=== PATIENT | female | born 1940 | race Caucasian/White ===

== ENCOUNTER 2018-04-11 14:11 | Observation (INO) ==
--- NOTE | 2018-04-11 14:46 | ED ---
HPI General Chief Complaint: Altered Mental Status Stated Complaint: Altered Mental Status Time Seen by Provider: 04/11/18 14:26 History of Present Illness HPI narrative: Patient presents to the emergency department with altered mental status. Change of mental status has been present since approximately 8 or 9:00 this morning. She does have a prior history of CVA. She is visiting from [place] she has been in the area since March 29. Her friend states that she has been dizzy, unable to walk well, confused. She is not scheduled to return to [place] into April 21 yet she packed her suitcase this morning and said that she was going back home. Additionally, she believes that she is actually still in [place]. She is without fever, chills, chest pain, nausea, vomiting, headache, abdominal pain, dysuria, or increased urinary frequency. She states she is on a blood thinner but when asked which one she states she cannot remember the name of few she states "all of them." Related Data Home Medications Medication Instructions Recorded Confirmed Unable to Obtain Home Meds 04/11/18 04/11/18 Allergies Allergy/AdvReac Type Severity Reaction Status Date / Time No Known Allergies Allergy Verified 04/11/18 14:40 Review of Systems ROS: all other systems reviewed are negative [facility] Medical History Medical History CVA (cerebral vascular accident) (Acute) Hypercholesteremia (Acute) Social History Social History Substance History: No History of Abuse Second Hand Smoke Exposure: No Smoking Status: Never smoker How Often Do You Have a Drink Containing Alcohol: Never Recent Travel in [facility] within the Last 8 Weeks: Yes Recent Out of Country Travel within the Last 8 Weeks: No Exam Narrative Exam Narrative: GENERAL: No acute distress. SKIN: Focused skin assessment warm/dry. HEAD: Atraumatic. Normocephalic. EYES: Pupils equal and round. No scleral icterus. No injection or drainage. ENT: No nasal bleeding or discharge. Mucous membranes pink and moist. NECK: Trachea midline. No JVD. CARDIOVASCULAR: Regular rate and rhythm. No murmur appreciated. RESPIRATORY: No accessory muscle use. Clear to auscultation. Breath sounds equal bilaterally. GASTROINTESTINAL: Abdomen soft, non-tender, nondistended. Hepatic and splenic margins not palpable. MUSCULOSKELETAL: No obvious deformities. No clubbing. No cyanosis. No edema. NEUROLOGICAL: Awake and alert. No obvious cranial nerve deficits. Motor grossly within normal limits. Normal speech (dry mouth), stroke scale of 2 91 for LOC as she doesn't know the month and 1 for R leg), oriented to person and time but not to place, 5/5 strength bilat UE and LE PSYCHIATRIC: Appropriate mood and affect; insight and judgment normal. Course Initial Documented Vital Signs Temperature 98.9 F 04/11/18 14:15 Pulse Rate 88 04/11/18 14:15 Respiratory Rate 24 04/11/18 14:15 Blood Pressure 139/75 04/11/18 14:15 Pulse Oximetry 96 04/11/18 14:15 Last Documented Vital Signs Temperature 98.9 F 04/11/18 14:15 Pulse Rate 108 H 04/11/18 16:12 Respiratory Rate 18 04/11/18 16:12 Blood Pressure 144/97 H 04/11/18 16:12 Pulse Oximetry 98 04/11/18 16:12 Medical Decision Making MDM Narrative Medical decision making narrative: Patient presents to the emergency department altered mental status. Patient placed on front desk monitor, continuous pulse ox, IV access obtained. Fingerstick within normal limits. Labs, EKG, chest x-ray, head CT ordered. 1610: Hospitalist paged for admission. Discussed case with hospitalist, requesting that I give ASA 325po which has been ordered as patient has a h/o CVA and with negative acute intracranial abnormality but difficulty walking per friend, he's concerned for CVA/TIA. Medical Screen Exam Complete: Yes Emergency Medical Condition: Yes Lab Data Result diagrams: 04/11/18 14:30 04/11/18 14:30 Lab Results 04/11/18 04/11/18 04/11/18 Range/Units 14:30 14:30 14:30 CBC w Diff Auto diff final WBC 10.6 (4.0-11.0) th/mm3 RBC 4.19 (4.00-5.30) mil/mm3 Hgb 11.8 (11.6-15.3) gm/dL Hct 35.9 (35.0-46.0) % MCV 85.6 (80.0-100.0) fL MCH 28.1 (27.0-34.0) pg MCHC 32.8 (32.0-36.0) % RDW 15.3 (11.6-17.2) % Plt Count 256 (150-450) th/mm3 MPV 8.4 (7.0-11.0) fL Neut % (Auto) 75.0 H (16.0-70.0) % Lymph % (Auto) 12.6 (9.0-44.0) % [place] % (Auto) 11.4 H (0.0-8.0) % Eos % (Auto) 0.4 (0.0-4.0) % Baso % (Auto) 0.6 (0.0-2.0) % Neut # (Auto) 8.0 H (1.8-7.7) th/mm3 Lymph # (Auto) 1.3 (1.0-4.8) th/mm3 [place] # (Auto) 1.2 H (0.0-0.9) th/mm3 Eos # (Auto) 0.0 (0.0-0.4) th/mm3 Baso # (Auto) 0.1 (0.0-0.2) th/mm3 WBC Differential . Differential Comment . PT 10.3 (9.8-11.6) sec INR 1.0 Ratio APTT 28.2 (23.4-31.7) sec Sodium 136 (136-145) meq/L Potassium 3.5 (3.5-5.1) meq/L Chloride 103 (98-107) meq/L Carbon Dioxide 21.7 (21.0-32.0) meq/L Anion Gap 11 (5-15) meq/L BUN 16 (7-18) mg/dL Creatinine 1.30 H (0.50-1.00) mg/dL Estimated GFR 40 L (>89) mL/min POC Glucose (68-110) mg/dl Random Glucose 116 H (74-106) mg/dL Calcium 8.7 (8.5-10.1) mg/dL Magnesium 2.1 (1.5-2.5) mg/dL Total Bilirubin 0.4 (0.2-1.0) mg/dL AST 20 (15-37) U/L ALT 18 (10-53) U/L Alkaline Phosphatase 119 H (45-117) U/L Ammonia (11-32) mcmol/L Total Creatine Kinase 68 (26-192) U/L Troponin I Less than 0.02 L (0.02-0.05) ng/mL Total Protein 7.8 (6.4-8.2) g/dL Albumin 3.4 (3.4-5.0) g/dL TSH 2.100 (0.358-3.740) uIU/mL Urine Color (Yellw/Straw) Urine Clarity (Clear) Urine pH (5.0-8.5) Ur Specific [place] (1.002-1.035) Urine Protein (Neg-Trace) mg/dL Urine Glucose (UA) (Negative) mg/dL Urine Ketones (Negative) mg/dL Urine Occult Blood (Negative) Urine Nitrate (Negative) Urine Bilirubin (Negative) Urine Urobilinogen (Less than 2) mg/dL Ur Leukocyte Esterase (Negative) Urine WBC (0-5) /hpf Amorphous Sediment (None) /hpf Micro UA Comment Ur Microscopic Review Urine Culture Comments Salicylates (2.8-20.0) mg/dL Urine Opiates Screen (Neg) Acetaminophen Less than 2.0 L (10.0-30.0) mcg/mL Ur Barbiturates Screen (Neg) Ur Amphetamines Screen (Neg) U Benzodiazepines Scrn (Neg) Urine Cocaine Screen (Neg) U Cannabinoids Screen (Neg) Serum Alcohol Less than 3 (0-5) mg/dL 04/11/18 04/11/18 04/11/18 Range/Units 14:30 14:30 14:36 CBC w Diff WBC (4.0-11.0) th/mm3 RBC (4.00-5.30) mil/mm3 Hgb (11.6-15.3) gm/dL Hct (35.0-46.0) % MCV (80.0-100.0) fL MCH (27.0-34.0) pg MCHC (32.0-36.0) % RDW (11.6-17.2) % Plt Count (150-450) th/mm3 MPV (7.0-11.0) fL Neut % (Auto) (16.0-70.0) % Lymph % (Auto) (9.0-44.0) % [place] % (Auto) (0.0-8.0) % Eos % (Auto) (0.0-4.0) % Baso % (Auto) (0.0-2.0) % Neut # (Auto) (1.8-7.7) th/mm3 Lymph # (Auto) (1.0-4.8) th/mm3 [place] # (Auto) (0.0-0.9) th/mm3 Eos # (Auto) (0.0-0.4) th/mm3 Baso # (Auto) (0.0-0.2) th/mm3 WBC Differential Differential Comment PT (9.8-11.6) sec INR Ratio APTT (23.4-31.7) sec Sodium (136-145) meq/L Potassium (3.5-5.1) meq/L Chloride (98-107) meq/L Carbon Dioxide (21.0-32.0) meq/L Anion Gap (5-15) meq/L BUN (7-18) mg/dL Creatinine (0.50-1.00) mg/dL Estimated GFR (>89) mL/min POC Glucose 116 H (68-110) mg/dl Random Glucose (74-106) mg/dL Calcium (8.5-10.1) mg/dL Magnesium (1.5-2.5) mg/dL Total Bilirubin (0.2-1.0) mg/dL AST (15-37) U/L ALT (10-53) U/L Alkaline Phosphatase (45-117) U/L Ammonia 29 (11-32) mcmol/L Total Creatine Kinase (26-192) U/L Troponin I (0.02-0.05) ng/mL Total Protein (6.4-8.2) g/dL Albumin (3.4-5.0) g/dL TSH (0.358-3.740) uIU/mL Urine Color (Yellw/Straw) Urine Clarity (Clear) Urine pH (5.0-8.5) Ur Specific [place] (1.002-1.035) Urine Protein (Neg-Trace) mg/dL Urine Glucose (UA) (Negative) mg/dL Urine Ketones (Negative) mg/dL Urine Occult Blood (Negative) Urine Nitrate (Negative) Urine Bilirubin (Negative) Urine Urobilinogen (Less than 2) mg/dL Ur Leukocyte Esterase (Negative) Urine WBC (0-5) /hpf Amorphous Sediment (None) /hpf Micro UA Comment Ur Microscopic Review Urine Culture Comments Salicylates Less than 1.7 L (2.8-20.0) mg/dL Urine Opiates Screen (Neg) Acetaminophen (10.0-30.0) mcg/mL Ur Barbiturates Screen (Neg) Ur Amphetamines Screen (Neg) U Benzodiazepines Scrn (Neg) Urine Cocaine Screen (Neg) U Cannabinoids Screen (Neg) Serum Alcohol (0-5) mg/dL 04/11/18 04/11/18 Range/Units 15:09 15:09 CBC w Diff WBC (4.0-11.0) th/mm3 RBC (4.00-5.30) mil/mm3 Hgb (11.6-15.3) gm/dL Hct (35.0-46.0) % MCV (80.0-100.0) fL MCH (27.0-34.0) pg MCHC (32.0-36.0) % RDW (11.6-17.2) % Plt Count (150-450) th/mm3 MPV (7.0-11.0) fL Neut % (Auto) (16.0-70.0) % Lymph % (Auto) (9.0-44.0) % [place] % (Auto) (0.0-8.0) % Eos % (Auto) (0.0-4.0) % Baso % (Auto) (0.0-2.0) % Neut # (Auto) (1.8-7.7) th/mm3 Lymph # (Auto) (1.0-4.8) th/mm3 [place] # (Auto) (0.0-0.9) th/mm3 Eos # (Auto) (0.0-0.4) th/mm3 Baso # (Auto) (0.0-0.2) th/mm3 WBC Differential Differential Comment PT (9.8-11.6) sec INR Ratio APTT (23.4-31.7) sec Sodium (136-145) meq/L Potassium (3.5-5.1) meq/L Chloride (98-107) meq/L Carbon Dioxide (21.0-32.0) meq/L Anion Gap (5-15) meq/L BUN (7-18) mg/dL Creatinine (0.50-1.00) mg/dL Estimated GFR (>89) mL/min POC Glucose (68-110) mg/dl Random Glucose (74-106) mg/dL Calcium (8.5-10.1) mg/dL Magnesium (1.5-2.5) mg/dL Total Bilirubin (0.2-1.0) mg/dL AST (15-37) U/L ALT (10-53) U/L Alkaline Phosphatase (45-117) U/L Ammonia (11-32) mcmol/L Total Creatine Kinase (26-192) U/L Troponin I (0.02-0.05) ng/mL Total Protein (6.4-8.2) g/dL Albumin (3.4-5.0) g/dL TSH (0.358-3.740) uIU/mL Urine Color Yellow (Yellw/Straw) Urine Clarity Slightly cloudy (Clear) Urine pH 6.5 (5.0-8.5) Ur Specific [place] Less/equal 1.005 (1.002-1.035) Urine Protein Negative (Neg-Trace) mg/dL Urine Glucose (UA) Negative (Negative) mg/dL Urine Ketones Negative (Negative) mg/dL Urine Occult Blood Negative (Negative) Urine Nitrate Negative (Negative) Urine Bilirubin Negative (Negative) Urine Urobilinogen 0.2 (Less than 2) mg/dL Ur Leukocyte Esterase Small H (Negative) Urine WBC 0-5 (0-5) /hpf Amorphous Sediment Few H (None) /hpf Micro UA Comment Culture not ind Ur Microscopic Review Microscopic reviewed Urine Culture Comments Culture not ind Salicylates (2.8-20.0) mg/dL Urine Opiates Screen Neg (Neg) Acetaminophen (10.0-30.0) mcg/mL Ur Barbiturates Screen Neg (Neg) Ur Amphetamines Screen Neg (Neg) U Benzodiazepines Scrn Neg (Neg) Urine Cocaine Screen Neg (Neg) U Cannabinoids Screen Neg (Neg) Serum Alcohol (0-5) mg/dL Imaging Data Radiologist's impression: Chest X-Ray 04/11/18 14:40 CONCLUSION: 1. Mild cardiomegaly. 2. Retrocardiac density possibly related to hiatal hernia. Head CT 04/11/18 14:40 CONCLUSION: 1. Chronic ischemic small vessel vasculopathy. 2. No acute intracranial abnormality. . ECG Data Attestation: I personally reviewed and interpreted this ECG as follows: (Rate 105, indeterminate axis, right bundle branch block, left atrial enlargement, QTC 398) Discharge Plan Discharge Disposition Patient Disposition: 30 Still Patient Discharge Condition Condition: Stable Discharge Details Diagnosis: Altered mental status Physicians Team ED Provider: Elva Soni Primary Care Provider: DEANNA, Other Providers: Eliazar Coello Rxs /Orders / Referrals /Forms Prescriptions: No Action Unable to Obtain Home Meds RF: 0 Status ED Status: Admitted Observation Patient
--- NOTE | 2018-04-11 15:07 | XR ---
EXAM DATE: 04/11/2018 2:58 PM EST AGE/SEX: 77 years / Female INDICATIONS: Cough. CLINICAL DATA: This is the patient's initial encounter. Patient reports that signs and symptoms have been present for 1 day and indicates a pain score of 0/10. MEDICAL/SURGICAL HISTORY: None. None. COMPARISON: No prior exams available for comparison. FINDINGS: A single AP view of the chest demonstrates the lungs to be symmetrically aerated without evidence of mass, infiltrate or effusion. Mild cardiomegaly. Retrocardiac density likely hiatal hernia. The card iomediastinal contours are unremarkable. Osseous structures are intact. CONCLUSION: 1. Mild cardiomegaly. 2. Retrocardiac density possibly related to hiatal hernia. Electronically signed by: Merlin Ward MD 04/11/2018 3:06 PM EST
[2018-04-11 15:12] LABS: Baso # (Auto) 0.1 th/mm3 (0.0-0.2); Baso % (Auto) 0.6 % (0.0-2.0); Eos % (Auto) 0.4 % (0.0-4.0); Hematocrit 35.9 % (35.0-46.0); Hemoglobin 11.8 gm/dL (11.6-15.3); Lymph # (Auto) 1.3 th/mm3 (1.0-4.8); Lymph % (Auto) 12.6 % (9.0-44.0); Mean Corpuscular HGB Conc 32.8 % (32.0-36.0); Mean Corpuscular Hemoglobin 28.1 pg (27.0-34.0); Mean Corpuscular Volume 85.6 fL (80.0-100.0); Mean Platelet Volume 8.4 fL (7.0-11.0); Mono # (Auto) 1.2 th/mm3 (0.0-0.9); Mono % (Auto) 11.4 % (0.0-8.0); Platelet Count 256 th/mm3 (150-450); Red Blood Count 4.19 mil/mm3 (4.00-5.30); Red Cell Distribution Width 15.3 % (11.6-17.2); White Blood Count 10.6 th/mm3 (4.0-11.0)
[2018-04-11 15:23] LABS: Chloride 103 meq/L (98-107); Potassium 3.5 meq/L (3.5-5.1); Sodium 136 meq/L (136-145)
[2018-04-11 15:25] LABS: Calcium 8.7 mg/dL (8.5-10.1)
[2018-04-11 15:26] LABS: Albumin 3.4 g/dL (3.4-5.0); Anion Gap 11 meq/L (5-15); Blood Urea Nitrogen 16 mg/dL (7-18); Carbon Dioxide 21.7 meq/L (21.0-32.0); Glucose,Random 116 mg/dL (74-106); Magnesium 2.1 mg/dL (1.5-2.5)
[2018-04-11 15:29] LABS: Alanine Aminotransferase 18 U/L (10-53); Aspartate Aminotransferase 20 U/L (15-37); Glomerular Filtration Rate 40 mL/min (>89)
[2018-04-11 15:30] LABS: Activated Partial Thrombo Time 28.2 sec (23.4-31.7); Prothrombin Time 10.3 sec (9.8-11.6)
[2018-04-11 15:31] LABS: Total Protein 7.8 g/dL (6.4-8.2)
[2018-04-11 15:32] LABS: Alkaline Phosphatase 119 U/L (45-117)
[2018-04-11 15:40] LABS: Creatine Kinase 68 U/L (26-192)
[2018-04-11 15:42] LABS: Bilirubin,Urine Negative (Negative); Clarity,Urine Slightly Cloudy (Clear); Color,Urine Yellow (Yellw/Straw); Glucose,Urine (UA) Negative (Negative); Leukocyte Esterase,Urine Small (Negative); Nitrite,Urine Negative (Negative); PH,Urine 6.5 (5.0-8.5); Specific Gravity,Urine Less/Equal 1.005 (1.002-1.035); Urobilinogen,Urine 0.2 mg/dL (Less than 2)
[2018-04-11 15:50] LABS: Amorphous Sediment,Urine Few /hpf; WBC,Urine 0-5 /hpf (0-5)
--- NOTE | 2018-04-11 15:55 | CT ---
EXAM DATE: 04/11/2018 3:41 PM EST AGE/SEX: 77 years / Female INDICATIONS: Altered mental status. CLINICAL DATA: This is the patient's initial encounter. Patient reports that signs and symptoms have been present for 1 day and indicates a pain score of 0/10. MEDICAL/SURGICAL HISTORY: Cerebrovascular disease. Hypercholesterolemia. None. RADIATION DOSE: 48.44 CTDI (mGy) COMPARISON: No prior exams available for comparison. TECHNIQUE: CT of the head without contrast. Using automated exposure control and adjustment of the mA and/or kV according to patient size, radiation dose was kept as low as reasonably achievable to ob tain optimal diagnostic quality images. DICOM format image data is available electronically for revi ew and comparison. FINDINGS: Cerebrum: The ventricles are normal for age. Areas of low-density in the white matter. No evidence o f midline shift, mass lesion, hemorrhage or acute infarction. No extraaxial fluid collections are se en. Posterior Fossa: The cerebellum and brainstem are intact. The 4th ventricle is midline. The cerebe llopontine angle is unremarkable. Extracranial: The visualized portion of the orbits is intact. Skull: The calvaria is intact. No evidence of skull fracture. CONCLUSION: 1. Chronic ischemic small vessel vasculopathy. 2. No acute intracranial abnormality. . Electronically signed by: Merlin Ward MD 04/11/2018 3:54 PM EST
[2018-04-11 15:56] LABS: Amphetamine Screen,Urine Neg (Neg); Barbiturate Screen,Urine Neg (Neg); Cannabinoid Screen,Urine Neg (Neg); Cocaine Screen,Urine Neg (Neg)
[2018-04-11 16:13] LABS: Opiate Screen,Urine Neg (Neg)
[2018-04-11] MEDS ORDERED: Dextrose 50% in Water 50 ML Vial IV.PUSH PRN (16:30)
[2018-04-11] MEDS ORDERED: Aspirin 325 MG Tablet PO ONE (16:30)
[2018-04-11] MEDS: Sod Chloride 0.9% Inj 1,000 ML IV.CONT SCH (17:22)
--- NOTE | 2018-04-11 17:39 | P.HP ---
History of Present Illness Primary Care Physician: UNKNOWN Chief Complaint: Difficulty with ambulation History of Present Illness: This is a 77-year-old female with a history of CVA, hypertension, hyperlipidemia and sleep apnea on CPAP. She was brought in by her friend because of difficulty ambulation. History is mainly taken from her friend whom the patient is staying with. Patient is visiting from [place] since March 29. Apparently patient fell out of chair about a week ago with no injuries. Today she was noted to have shuffling gait no falls but was also disoriented especially to place. She is not scheduled to return to [place] until April 21 but she already packed her suitcase this morning and said she was going back home. She denies fever, chills, nausea, chest pain, shortness of breath, abdominal pain, UTI symptoms, diarrhea and constipation. No swallowing difficulty or slurred speech. Per ED physician she had right lower extremity drift which I did not elicit. Gait was not tested but according to her friend, patient struggled walking and getting into the car. Patient states she takes a blood thinner which she cannot remember. She gets her medicine from [facility] in [place]. I instructed ED nurse to contact patient's to update med list. At this time, she is oriented to person and place but not to time. Urinalysis, urine drug screen and ammonia level negative. Chest x-ray independently reviewed by me with no acute cardiopulmonary disease. Head CT with chronic ischemic vasculopathy. EKG independently reviewed with sinus tachycardia with first-degree AV block and right bundle branch block no previous EKG for comparison. All other systems reviewed negative Review of Systems All other systems reviewed negative except as stated in [facility] - History History Provided By: Patient - Medical History Medical History: Medical History (Last Reviewed 04/11/18 @ 17:43 by Delgado Zambrano MD) CVA (cerebral vascular accident) Hypercholesteremia - Surgical History Surgical History: Surgical History (Last Updated 04/11/18 @ 17:44 by Delgado Zambrano MD) No history of previous surgery - Family History Family History: Family History (Last Updated 04/11/18 @ 17:44 by Delgado Zambrano MD) Other No pertinent family history - Social History I have reviewed the patient's Social History: Yes - Tobacco History Second Hand Smoke Exposure: No Tobacco Use In Past 30 Days: No Smoking Status: Never smoker - Alcohol History How Often Do You Have a Drink Containing Alcohol: Never - Substance Use History Substance History: No History of Abuse - Travel History Recent Travel in the [place] Within the Last 8 Weeks: Yes Recent Travel Out of the Country Within the Last 8 Weeks: No - Immunization History Tetanus Immunization: Unsure Medications and Allergies Active Medications: Active Medications Aspirin (Aspirin) 325 mg PO DAILY [facility] Dextrose (D50w Vial) 50 ml IV.PUSH UNSCH PRN PRN Reason: PER HYPOGLYCEMIA PROTOCOL Enalaprilat (Vasotec Inj) 1.25 mg IV.PUSH Q4H PRN PRN Reason: For SBP > 220 or DBP > 120 Glucagon (Glucagon Inj) 1 mg OTHER UNSCH PRN PRN Reason: for Hypoglycemia Protocol Sodium Chloride (Ns Inj) 1,000 mls @ 70 mls/hr IV.CONT .[id number] JACINTO Last Admin: 04/11/18 17:22 Dose: 70 mls/hr Insulin Aspart (Novolog Insulin Correctional Sugar Inj) 0 unit SQ ACHS JACINTO; Protocol Sodium Chloride (Ns Flush) 2 ml IV.FLUSH BID JACINTO Sodium Chloride (Ns Flush) 2 ml IV.FLUSH PRN PRN PRN Reason: FLUSH AFTER USING IV ACCESS Allergies Allergy/AdvReac Type Severity Reaction Status Date / Time No Known Allergies Allergy Verified 04/11/18 14:40 Home Medications Medication Instructions Recorded Confirmed Type Unable to Obtain Home Meds 04/11/18 04/11/18 History Exam Vital signs: Vital Signs 04/11/18 14:15 04/11/18 14:50 04/11/18 16:12 Temperature 98.9 F Pulse Rate 88 104 H 108 H Respiratory Rate 24 16 18 Blood Pressure 139/75 132/68 144/97 H Pulse Oximetry 96 96 98 04/11/18 17:21 Temperature Pulse Rate 96 H Respiratory Rate 18 Blood Pressure 164/79 H Pulse Oximetry 95 Intake & Output 04/10/18 04/11/18 04/11/18 18:59 06:59 18:59 Weight 55.6 kg Narrative: GENERAL: Well-developed, well-nourished in no distress SKIN: Warm and dry. HEAD: Atraumatic. Normocephalic. EYES: Pupils equal and round. No scleral icterus. No injection or drainage. ENT: No nasal bleeding or discharge. Mucous membranes pink and moist. NECK: Trachea midline. No JVD. CARDIOVASCULAR: Regular rate and rhythm. RESPIRATORY: No accessory muscle use. Clear to auscultation. Breath sounds equal bilaterally. GASTROINTESTINAL: Abdomen soft, non-tender, nondistended. MUSCULOSKELETAL: Extremities without clubbing, cyanosis, or edema. No obvious deformities. NEUROLOGICAL: Awake and alert. Oriented to person and place per no obvious cranial nerve deficits. Patient with general weakness. Five out of 5 muscle strength in the arms and legs. Normal speech. Results - Labs CBC & Chem 7: 04/11/18 14:30 04/11/18 14:30 Labs: Laboratory Results - last 24 hr 04/11/18 04/11/18 04/11/18 14:30 14:30 14:30 CBC w Diff Auto diff final WBC 10.6 RBC 4.19 Hgb 11.8 Hct 35.9 MCV 85.6 MCH 28.1 MCHC 32.8 RDW 15.3 Plt Count 256 MPV 8.4 Neut % (Auto) 75.0 H Lymph % (Auto) 12.6 Granite % (Auto) 11.4 H Eos % (Auto) 0.4 Baso % (Auto) 0.6 Neut # (Auto) 8.0 H Lymph # (Auto) 1.3 Granite # (Auto) 1.2 H Eos # (Auto) 0.0 Baso # (Auto) 0.1 WBC Differential . Differential Comment . PT 10.3 INR 1.0 APTT 28.2 Sodium 136 Potassium 3.5 Chloride 103 Carbon Dioxide 21.7 Anion Gap 11 BUN 16 Creatinine 1.30 H Estimated GFR 40 L POC Glucose Random Glucose 116 H Calcium 8.7 Magnesium 2.1 Total Bilirubin 0.4 AST 20 ALT 18 Alkaline Phosphatase 119 H Ammonia Total Creatine Kinase 68 Troponin I Less than 0.02 L Total Protein 7.8 Albumin 3.4 TSH 2.100 Urine Color Urine Clarity Urine pH Ur Specific [place] Urine Protein Urine Glucose (UA) Urine Ketones Urine Occult Blood Urine Nitrate Urine Bilirubin Urine Urobilinogen Ur Leukocyte Esterase Urine WBC Amorphous Sediment Micro UA Comment Ur Microscopic Review Urine Culture Comments Salicylates Urine Opiates Screen Acetaminophen Less than 2.0 L Ur Barbiturates Screen Ur Amphetamines Screen U Benzodiazepines Scrn Urine Cocaine Screen U Cannabinoids Screen Serum Alcohol Less than 3 04/11/18 04/11/18 04/11/18 14:30 14:30 14:30 CBC w Diff WBC RBC Hgb Hct MCV MCH MCHC RDW Plt Count MPV Neut % (Auto) Lymph % (Auto) Granite % (Auto) Eos % (Auto) Baso % (Auto) Neut # (Auto) Lymph # (Auto) Granite # (Auto) Eos # (Auto) Baso # (Auto) WBC Differential Differential Comment PT INR APTT Sodium Potassium Chloride Carbon Dioxide Anion Gap BUN Creatinine Estimated GFR POC Glucose Random Glucose Calcium Magnesium Total Bilirubin AST ALT Alkaline Phosphatase Ammonia 29 Total Creatine Kinase Cancelled Troponin I Total Protein Albumin TSH Urine Color Urine Clarity Urine pH Ur Specific [place] Urine Protein Urine Glucose (UA) Urine Ketones Urine Occult Blood Urine Nitrate Urine Bilirubin Urine Urobilinogen Ur Leukocyte Esterase Urine WBC Amorphous Sediment Micro UA Comment Ur Microscopic Review Urine Culture Comments Salicylates Less than 1.7 L Urine Opiates Screen Acetaminophen Ur Barbiturates Screen Ur Amphetamines Screen U Benzodiazepines Scrn Urine Cocaine Screen U Cannabinoids Screen Serum Alcohol 04/11/18 04/11/18 04/11/18 14:36 15:09 15:09 CBC w Diff WBC RBC Hgb Hct MCV MCH MCHC RDW Plt Count MPV Neut % (Auto) Lymph % (Auto) Granite % (Auto) Eos % (Auto) Baso % (Auto) Neut # (Auto) Lymph # (Auto) Granite # (Auto) Eos # (Auto) Baso # (Auto) WBC Differential Differential Comment PT INR APTT Sodium Potassium Chloride Carbon Dioxide Anion Gap BUN Creatinine Estimated GFR POC Glucose 116 H Random Glucose Calcium Magnesium Total Bilirubin AST ALT Alkaline Phosphatase Ammonia Total Creatine Kinase Troponin I Total Protein Albumin TSH Urine Color Yellow Urine Clarity Slightly cloudy Urine pH 6.5 Ur Specific [place] Less/equal 1.005 Urine Protein Negative Urine Glucose (UA) Negative Urine Ketones Negative Urine Occult Blood Negative Urine Nitrate Negative Urine Bilirubin Negative Urine Urobilinogen 0.2 Ur Leukocyte Esterase Small H Urine WBC 0-5 Amorphous Sediment Few H Micro UA Comment Culture not ind Ur Microscopic Review Microscopic reviewed Urine Culture Comments Culture not ind Salicylates Urine Opiates Screen Neg Acetaminophen Ur Barbiturates Screen Neg Ur Amphetamines Screen Neg U Benzodiazepines Scrn Neg Urine Cocaine Screen Neg U Cannabinoids Screen Neg Serum Alcohol - Imaging Impressions Chest X-Ray 04/11/18 14:40 CONCLUSION: 1. Mild cardiomegaly. 2. Retrocardiac density possibly related to hiatal hernia. Head CT 04/11/18 14:40 CONCLUSION: 1. Chronic ischemic small vessel vasculopathy. 2. No acute intracranial abnormality. . Caprini VTE Risk Assessment Caprini VTE Risk Assessment: Moderate/High Risk (score >= 2) Caprini Risk Assessment Model: Point Value = 1 Point Value = 2 Point Value = 3 Point Value = 5 Age 41-60 Minor surgery BMI > 25 kg/m2 Swollen legs Varicose veins or History of unexplained or recurrent spontaneous Oral contraceptives or hormone replacement Sepsis (< 1 month) Serious lung disease, including pneumonia (< 1 month) Abnormal pulmonary function Acute myocardial infarction Congestive heart failure (< 1 month) History of inflammatory bowel disease Medical patient at bed rest Age 61-74 Arthroscopic surgery Major open surgery (> 45 min) Laparoscopic surgery (> 45 min) Malignancy Confined to bed (> 72 hours) Immobilizing plaster cast Central venous access Age >= 75 History of VTE Family history of VTE Factor V Leiden Prothrombin [id number] Lupus anticoagulant Anticardiolipin antibodies Elevated serum homocysteine Heparin-induced thrombocytopenia Other congenital or acquired thrombophilia Stroke (< 1 month) Elective arthroplasty Hip, pelvis, or leg fracture Acute spinal cord injury (< 1 month) Prophylaxis Regimen: Total Risk Factor Score Risk Level Prophylaxis Regimen 0-1 Low Early ambulation 2 Moderate Order ONE of the following: *Sequential Compression Device (SCD) *Heparin 5000 units SQ BID 3-4 Higher Order ONE of the following medications: *Heparin 5000 units SQ TID *Enoxaparin/Lovenox 40 mg SQ daily (WT < 150 kg, CrCl > 30 mL/min) *Enoxaparin/Lovenox 30 mg SQ daily (WT < 150 kg, CrCl > 10-29 mL/min) *Enoxaparin/Lovenox 30 mg SQ BID (WT < 150 kg, CrCl > 30 mL/min) AND/OR *Sequential Compression Device (SCD) 5 or more Highest Order ONE of the following medications: *Heparin 5000 units SQ TID (Preferred with Epidurals) *Enoxaparin/Lovenox 40 mg SQ daily (WT < 150 kg, CrCl > 30 mL/min) *Enoxaparin/Lovenox 30 mg SQ daily (WT < 150 kg, CrCl > 10-29 mL/min) *Enoxaparin/Lovenox 30 mg SQ BID (WT < 150 kg, CrCl > 30 mL/min) AND *Sequential Compression Device (SCD) Assessment and Plan - Plan This is a 77-year-old female with a history of CVA, hypertension, hyperlipidemia and sleep apnea on CPAP. She presented with difficulty ambulation with shuffling gait and disorientation. Labs unrevealing. Urinalysis, urine drug screen and ammonia level negative. Chest x-ray with no acute cardiopulmonary disease. Head CT with chronic ischemic vasculopathy. EKG with sinus tachycardia with first-degree AV block and right bundle branch block no previous EKG for comparison. Abnormal gait with disorientation in a patient with a history of CVA. Suspect CVA versus TIA versus seizure. Stroke workup which will include MRI of the brain, carotid ultrasound, echocardiogram and monitor patient on telemetry. Obtain EEG and consult neurology, PT, OT and ST. Acute kidney injury versus chronic kidney disease. CK and urinalysis unremarkable. Start IV hydration. Avoid nephrotoxins and repeat BMP in the morning DVT prophylaxis with SCD and early ambulation pharmacological prophylaxis when cleared by neurology Discharge Planning: pt and keon
[2018-04-11] MEDS: Insulin NovoLOG Aspart Correctional Sugar Inj SQ SCH ×2 (18:37→21:51)
[2018-04-11 18:51] LABS: ABG Base Excess -1.8 mmol/L (-2-2); ABG PCO2 34 mmHg (38-42); ABG PO2 76 mmHg (61-120)
--- NOTE | 2018-04-11 19:07 | ECG ---
Date Performed: 04/11/2018 Time Performed: 14:43:22 PTAGE: 77 years EKG: PROBABLE SINUS TACHYCARDIA WITH FIRST DEGREE AV BLOCK POSSIBLE LEFT ATRIAL ENLARGEMENT INDE TERMINATE AXIS RIGHT BUNDLE BRANCH BLOCK ABNORMAL ECG NO PREVIOUS TRACING DOCTOR: Edenilson Sales Interpretating Date/Time 04/11/2018 19:06:15
--- NOTE | 2018-04-11 22:00 | MB ---
cc: Eliazar Coello MD, PhD DATE: 04/11/2018 REASON FOR CONSULTATION: Gait difficulty. HISTORY OF PRESENT ILLNESS: This is a pleasant 77-year-old female visiting from [place] who suddenly developed difficulty with her gait. She states an unsteadiness of gait with a tendency to shuffle and wavier. She had no other neurological symptoms. In the ER, it was thought that she had a drift of the right lower extremity. She denies any focal deficits. PAST MEDICAL HISTORY: History of stroke in the past, hypertension, hyperlipidemia, sleep apnea, on CPAP, hypercholesterolemia. MEDICATIONS AT HOME: 1. Aspirin 325 mg daily. 2. Enalapril p.r.n. NEUROLOGICAL EXAMINATION: VITAL SIGNS: Blood pressure 125/58, pulse 88, respiratory rate 18, temperature 96 degrees. HIGHER CORTICAL FUNCTION: She is alert and oriented. Speech is normal. She has normal recall. Follows commands well. CRANIAL NERVES: 2-12 are normal. MOTOR: She has 5/5 strength of all the major groups in both the upper and lower extremities. Reflexes are symmetric. CEREBELLAR TESTING: Normal. SENSORY: Intact. IMAGING DATA: CT of the brain, no acute change, chronic ischemic change identified. LABORATORY DATA: White count 10,600, hemoglobin 11.8, hematocrit 35%, platelet count 256,000. PT 10.3, APTT 28.2. Sodium 136, potassium 3.5, chloride 103, CO2 of 21.7, BUN 16, creatinine 1.3. IMPRESSION: Acute onset of difficulty with her gait and unsteadiness, rule out cerebellar stroke. RECOMMENDATIONS: MRI of the brain for further evaluation for possible stroke. Eliazar Coello MD, PhD JONATHAN/aliza , 09:24 PM , 09:29 PM
[2018-04-12] MEDS: Sod Chloride 0.9% Inj 1,000 ML IV.CONT SCH (06:39)
[2018-04-12 07:44] LABS: Chol/HDL Ratio 1.92 Ratio; HDL Cholesterol 73.1 mg/dL (40.0-60.0)
[2018-04-12] MEDS: Insulin NovoLOG Aspart Correctional Sugar Inj SQ SCH ×3 (08:34→17:39)
--- NOTE | 2018-04-12 08:45 | US ---
EXAM DATE: 04/12/2018 8:40 AM EST AGE/SEX: 77 years / Female INDICATIONS: Trans ischemic attack. CLINICAL DATA: This is the patient's initial encounter. Patient reports that signs and symptoms have been present for 1 day and indicates a pain score of 0/10. MEDICAL/SURGICAL HISTORY: . CVA. Hypercholesteremia. None. COMPARISON: No prior exams available for comparison. VELOCITY PARAMETERS: ICA/CCA Ratio: Right 1.2 , Left 1.1 ICA: Right 104 cm/sec, Left 94 cm/sec CCA: Right 87 cm/sec, Left 88 cm/sec ECA: Right 96 cm/sec, Left 96 cm/sec Vertebral: Right 75 cm/sec antegrade, Left 71 cm/sec antegrade FINDINGS: Antegrade flow is seen in both vertebral arteries. There is mild atherosclerotic plaquing at the origin of both ICAs worse on the left without any significant stenosis. Elevated flow velocities and ICA/CCA ratios have been found to correlate with increased degrees of vessel stenosis, calculated as percentage of diameter relative to a normal segment of distal ICA. CONCLUSION: No evidence for hemodynamically significant stenosis. Electronically signed by: Rodolfo Gillespie MD 04/12/2018 8:43 AM EST
[2018-04-12] MEDS ORDERED: Aspirin 325 MG Tablet PO SCH (09:00)
[2018-04-12 10:08] VITALS: RESP 20
--- NOTE | 2018-04-12 14:52 | MR ---
EXAM DATE: 04/12/2018 2:48 PM EST AGE/SEX: 77 years / Female INDICATIONS: Stroke. Altered mental status. CLINICAL DATA: This is the patient's initial encounter. Patient reports that signs and symptoms have been present for 1 day and indicates a pain score of 0/10. MEDICAL/SURGICAL HISTORY: Stroke. None. COMPARISON: [facility], CT HEAD W/O CONTRAST, 04/11/2018. . TECHNIQUE: Multiplanar, multisequence examination of the brain was performed without contrast. FINDINGS: Cerebrum: The ventricles are normal for age. No evidence of midline shift, mass lesion, hemorrhage or acute infarction. No extraaxial fluid collections are seen. The pituitary gland and suprasellar cistern are normal in configuration. White Matter: On the FLAIR weighted images there is increased signal noted in the periventricular wh ite matter and centrum semiovale most characteristic of chronic small vessel ischemic change. Posterior Fossa: The cerebellum and brainstem are intact. The 4th ventricle is midline. The cerebel lopontine angle is unremarkable. The cerebellar tonsils are normal in position. Diffusion Imaging: No focal areas of restricted diffusion are seen. No evidence of acute infarction . Extracranial: The visualized portions of the orbits and paranasal sinuses are unremarkable. CONCLUSION: 1. No acute hemorrhage or infarction. 2. Atrophy and chronic small vessel ischemic change. Electronically signed by: Sloan Al MD 04/12/2018 2:51 PM EST
--- NOTE | 2018-04-12 15:02 | MG ---
cc: Eliazar Coello MD, PhD TEST NUMBER: [id number] TECHNIQUE: A 17-channel EEG. DESCRIPTION: Background rhythm revealed a symmetrical alpha rhythm, frequency is 8 Hz. During drowsiness, there is slowing in the theta range at 6 Hz. There were no lateralizing features identified. The patient does fall asleep. There is delta slowing with sleep spindles. Photic is normal. Hyperventilation was not done. INTERPRETATION: Normal awake and asleep electroencephalogram. Eliazar Coello MD, PhD JONATHAN/es , 02:39 PM , 02:45 PM
--- NOTE | 2018-04-12 15:36 | ECHRPT ---
Indication: CVA/TIA CONCLUSIONS Normal left ventricular size. Wall thickness is measured at the upper limits of normal. The left ventricular systolic function is normal with an estimated ejection fraction in the range of 55-60%. Trace mitral valve regurgitation. Mitral annular calcification is present. Aortic valve sclerosis is present. Mild aortic valve regurgitation. There is trace tricuspid valve regurgitation. The estimated pulmonary arterial pressure is 40 mmHg. There is a small pericardial effusion present. BP: / HR: Rhythm: MEASUREMENTS (Male / Female) Normal Values Technical Quality:Fair 2D ECHO LV Diastolic Diameter PLAX 4.5 cm 4.2 - 5.9 / 3.9 - 5.3 cm LV Systolic Diameter PLAX 3.1 cm IVS Diastolic Thickness 1.0 cm 0.6 - 1.0 / 0.6 - 0.9 cm LVPW Diastolic Thickness 1.0 cm 0.6 - 1.0 / 0.6 - 0.9 cm LV Relative Wall Thickness 0.4 RV Internal Dim ED PLAX 2.1 cm LVOT Diameter 1.9 cm Aortic Root Diameter 2.4 cm LA Systolic Diameter LX 3.0 cm 3.0 - 4.0 / 2.7 - 3.8 cm DOPPLER AV Peak Velocity 109.0 cm/s AV Peak Gradient 4.8 mmHg AI Peak Velocity 378.0 cm/s AI Peak Gradient 57.2 mmHg AI Pressure Half Time 403.0 ms LVOT Peak Velocity 103.0 cm/s LVOT Peak Gradient 4.2 mmHg AV Area Cont Eq pk 2.7 cm Mitral E Point Velocity 93.8 cm/s Mitral A Point Velocity 117.0 cm/s Mitral E to A Ratio 0.8 LV E' Lateral Velocity 6.3 cm/s Mitral E to LV E' Lateral Ratio 14.8 LV E' Septal Velocity 6.4 cm/s Mitral E to LV E' Septal Ratio 14.6 TR Peak Velocity 274.0 cm/s TR Peak Gradient 30.0 mmHg Right Atrial Pressure 10.0 mmHg Pulmonary Artery Systolic Pressu 40.0 mmHg Right Ventricular Systolic Press 40.0 mmHg PV Peak Velocity 95.0 cm/s PV Peak Gradient 3.6 mmHg FINDINGS LEFT VENTRICLE Normal left ventricular size. Wall thickness is measured at the upper limits of normal. The left ventricular systolic function is normal with an estimated ejection fraction in the range of 55-60%. RIGHT VENTRICLE Normal right ventricular size and systolic function. LEFT ATRIUM The left atrial size is normal. RIGHT ATRIUM The right atrial size is normal. ATRIAL SEPTUM Normal atrial septal thickness without atrial level shunting by limited color doppler interrogation. Possible atrial septal aneurysm. AORTA The aortic root and proximal ascending aorta are normal in size on limited imaging. MITRAL VALVE Trace mitral valve regurgitation. Severe mitral annular calcification is present. AORTIC VALVE Trileaflet aortic valve. Aortic valve sclerosis is present. Mild aortic valve regurgitation. TRICUSPID VALVE There is trace tricuspid valve regurgitation. The estimated pulmonary arterial pressure is 40 mmHg. PULMONARY VALVE No pulmonary valve regurgitation or stenosis. VESSELS The inferior vena cava is normal in size. PERICARDIUM There is a small pericardial effusion present. Carlos Elaine MD (Electronically Signed) Final Date:12 April 2018 15:34
[2018-04-12 15:50] LABS: Hemoglobin A1c 6.2 % (4.3-6.0)
--- NOTE | 2018-04-12 16:09 | P.DCO ---
- Physical Therapy Order: Evaluate and treat, Improve ambulation, Strength and gait training - Home Health Nursing Order: Medical education, Signs/symptoms of disease process, Medication education-adverse effect, Nursing assessment with vital signs - Case Management Consult Yes - Certification I have seen patient Sneha Hdz on 04/12/18. My clinical findings support the need for the requested home health care services because: Deconditioned with increased weakness, Limited ability to care for self, High risk of falls, Infection with risk of complications I certify that my clinical findings support that this patient is homebound because: Unsteady gait/balance, Unsafe to leave home unassisted, Need for psychosocial assistance, Non-ambulatory: confined to bed or chair, Unable to use public transportation
[2018-04-12 16:29] VITALS: PULSE 85
--- NOTE | 2018-04-12 16:33 | P.DS ---
Date of admission: 04/11/18 16:30 Primary care physician: UNKNOWN Attending physician on discharge: Checo Duncan Anticipated date of discharge: 04/12/18 Brief History from admission: This is a 77-year-old female with a history of CVA, hypertension, hyperlipidemia and sleep apnea on CPAP. She was brought in by her friend because of difficulty ambulation. History is mainly taken from her friend whom the patient is staying with. Patient is visiting from [place] since March 29. Apparently patient fell out of chair about a week ago with no injuries. Today she was noted to have shuffling gait no falls but was also disoriented especially to place. She is not scheduled to return to [place] until April 21 but she already packed her suitcase this morning and said she was going back home. She denies fever, chills, nausea, chest pain, shortness of breath, abdominal pain, UTI symptoms, diarrhea and constipation. No swallowing difficulty or slurred speech. Per ED physician she had right lower extremity drift which I did not elicit. Gait was not tested but according to her friend, patient struggled walking and getting into the car. Patient states she takes a blood thinner which she cannot remember. She gets her medicine from [facility] in [place]. I instructed ED nurse to contact patient's to update med list. At this time, she is oriented to person and place but not to time. Urinalysis, urine drug screen and ammonia level negative. Chest x-ray independently reviewed by me with no acute cardiopulmonary disease. Head CT with chronic ischemic vasculopathy. EKG independently reviewed with sinus tachycardia with first-degree AV block and right bundle branch block no previous EKG for comparison. All other systems reviewed negative Patient update on day of discharge: Patient is doing well. No acute concerns. Family at bedside. She is on room air. Tolerating diet well. DS: Summary Hospital Course: Ms. Hdz is a pleasant 77-year-old female with a history of CVA, hypertension, hyperlipidemia and sleep apnea on CPAP who was admitted to the hospital due to difficulty ambulation with shuffling gait and disorientation. Neurology was consulted and ordered MRI of the brain as well as EEG. MRI brain and EEG were unremarkable. Patient is already on Plavix for secondary stroke prophylaxis. Patient was evaluated by PT and OT. PT recommended home health. I discussed with patient's son who will fly back to [place] with her. PT recommended home health and a rolling walker. Due to insurance status, patient will need to arrange home health and walker in [place]. Patient's son will arrange to get a walker locally here in [place]. The plan to fly back within 1-2 days. All questions answered. Patient and her son verbalized understanding. - Time Spent with Patient Total time spent providing and/or coordinating discharge services: Less than 30 minutes - Quality: VTE Deep Vein Thrombosis/Pulmonary Embolism Present on Admission: No Exam Vital signs: Vital Signs 04/11/18 17:21 04/11/18 18:11 04/11/18 19:59 Temperature 96.5 F L Pulse Rate 96 H 88 Respiratory Rate 18 18 Blood Pressure 164/79 H 125/58 L Pulse Oximetry 95 95 04/11/18 20:00 04/11/18 20:30 04/11/18 21:00 Temperature 96.5 F L 97.3 F L Pulse Rate 91 H 86 Respiratory Rate 18 16 Blood Pressure 125/58 L 126/58 L Pulse Oximetry 97 96 04/12/18 00:00 04/12/18 04:00 04/12/18 08:00 Temperature 96.4 F L 96.9 F L 97.5 F L Pulse Rate 86 80 84 Respiratory Rate 18 18 20 Blood Pressure 141/67 H 151/65 H 174/77 H Pulse Oximetry 95 94 L 96 04/12/18 08:14 04/12/18 08:59 04/12/18 12:00 Temperature 97.5 F L 97.5 F L Pulse Rate 84 84 Respiratory Rate 20 20 Blood Pressure 174/77 H 150/70 H Pulse Oximetry 96 96 96 04/12/18 12:59 Temperature 97.5 F L Pulse Rate 84 Respiratory Rate 20 Blood Pressure 150/70 H Pulse Oximetry 96 Intake & Output 04/11/18 04/12/18 04/12/18 18:59 06:59 18:59 Intake Total 1200 / 1200 480 / 480 Output Total 1050 / 1050 400 / 400 Balance 150 / 150 80 / 80 Weight 55.6 kg 56.5 kg Intake: IV 900 / 900 NS Inj 1,000 ML @ 70 mls/hr IV. 900 / 900 CONT .[id number] [facility] Rx#: [id number] Oral 300 / 300 480 / 480 Output: Urine 700 / 700 400 / 400 Stool 350 / 350 Narrative: GENERAL: Alert, NAD. SKIN: Warm and dry. HEAD: Normocephalic. EYES: No scleral icterus. No injection or drainage. NECK: Supple, trachea midline. No JVD or lymphadenopathy. CARDIOVASCULAR: Regular rate and rhythm without murmurs, gallops, or rubs. RESPIRATORY: Breath sounds equal bilaterally. No accessory muscle use. GASTROINTESTINAL: Abdomen soft, non-tender, nondistended. MUSCULOSKELETAL: No cyanosis, or edema. BACK: Nontender without obvious deformity. No CVA tenderness. Results Procedures completed during hospitalization: 04/12/2018 Normal left ventricular size. Wall thickness is measured at the upper limits of normal. The left ventricular systolic function is normal with an estimated ejection fraction in the range of 55-60%. Trace mitral valve regurgitation. Mitral annular calcification is present. Aortic valve sclerosis is present. Mild aortic valve regurgitation. There is trace tricuspid valve regurgitation. The estimated pulmonary arterial pressure is 40 mmHg. There is a small pericardial effusion present. EEG INTERPRETATION: Normal awake and asleep electroencephalogram. Labs on day of discharge: Labs from last 24 hours 04/12/18 04/12/18 04/12/18 11:20 07:26 05:49 Puncture Site Patient Temperature O2 Saturation ABG pH ABG pCO2 ABG pO2 ABG HCO3 ABG O2 Content ABG Base Excess ABG Methemoglobin [place] Test Hemoglobin Carboxyhemoglobin O2 Delivery Device Inspired O2 Critical Value POC Glucose 105 93 Hemoglobin A1c Total Creatine Kinase Triglycerides 59 Cholesterol 141 LDL Cholesterol, Calc 56 HDL Cholesterol 73.1 H Cholesterol/HDL Ratio 1.92 Free T4 04/12/18 04/11/18 04/11/18 05:49 20:22 18:45 Puncture Site Left radial Patient Temperature 98.6 O2 Saturation 94 ABG pH 7.43 H ABG pCO2 34 L ABG pO2 76 ABG HCO3 22 ABG O2 Content 14.9 ABG Base Excess -1.8 ABG Methemoglobin 1.2 [place] Test Present Hemoglobin 11.2 L Carboxyhemoglobin 1.3 O2 Delivery Device Ra Inspired O2 21 Critical Value No POC Glucose 144 H Hemoglobin A1c Pending Total Creatine Kinase Triglycerides Cholesterol LDL Cholesterol, Calc HDL Cholesterol Cholesterol/HDL Ratio Free T4 04/11/18 14:30 Puncture Site Patient Temperature O2 Saturation ABG pH ABG pCO2 ABG pO2 ABG HCO3 ABG O2 Content ABG Base Excess ABG Methemoglobin [place] Test Hemoglobin Carboxyhemoglobin O2 Delivery Device Inspired O2 Critical Value POC Glucose Hemoglobin A1c Total Creatine Kinase Cancelled Triglycerides Cholesterol LDL Cholesterol, Calc HDL Cholesterol Cholesterol/HDL Ratio Free T4 0.86 - Impressions ITS Impressions Chest X-Ray 04/11/18 14:40 CONCLUSION: 1. Mild cardiomegaly. 2. Retrocardiac density possibly related to hiatal hernia. Head CT 04/11/18 14:40 CONCLUSION: 1. Chronic ischemic small vessel vasculopathy. 2. No acute intracranial abnormality. . Carotid Doppler Study 04/12/18 00:00 CONCLUSION: No evidence for hemodynamically significant stenosis. Head MRI 04/12/18 07:03 CONCLUSION: 1. No acute hemorrhage or infarction. 2. Atrophy and chronic small vessel ischemic change. Discharge Plan - Discharge Disposition Patient Disposition: 01 Discharge Home - Discharge Condition Condition: Stable - Discharge Order Discharge Orders: Discharge Order (Routine); Ordered 04/12/18 Ordered By: Checo Duncan - Discharge Details Anticipated Discharge Date: 04/12/18 - Physicians Team Primary Care Provider: UNKNOWN, Attending Provider: Checo Duncan Other Providers: Eliazar Coello MD, PhD
[2018-04-12 17:34] VITALS: BP 186/88; TEMP 97; O2SAT 99
== END 2018-04-12 18:01 | disposition home or self-care (01) ==
LOC: PHEDA 14:11 → PHED 14:11 → PH3 18:30
PROVIDERS: ADMIT Hospitalist; ATTEND Hospitalist